=== PATIENT | male | born 1955 | race Asian ===

== ENCOUNTER 2020-12-09 09:26 | Day surgery (SDC) | payer OTHER, SELFPAY ==
[~2020-12-09] VITALS: Ht 165.1 cm; Wt 99.8 kg
[2020-12-09] MEDS ORDERED: fentaNYL citrate 0.05 MG/ML VIAL ONE (11:49)
[2020-12-09] MEDS ORDERED: LIDOCAINE 2% 100 MG/5 ML UJET TP ONE (11:49)
[2020-12-09] MEDS ORDERED: MIDAZOLAM 5 MG/5 ML VIAL ONE (11:49)
[2020-12-09] MEDS ORDERED: fentaNYL citrate 0.05 MG/ML VIAL IVP ONE (16:35)
[2020-12-09] MEDS ORDERED: SIMETHICONE 40 MG/0.6 ML PO ONE (16:35)
== END 2020-12-09 12:36 | disposition home or self-care (01) ==
LOC: MDS 09:26 → MMU 09:26 → MDS 12:36 → MMU 12-16 15:00
PROVIDERS: ATTEND Internal Medicine Gastroenterology
DX: Z12.11 Encounter for screening for malignant neoplasm of colon (principal); D12.5 Benign neoplasm of sigmoid colon; K57.30 Diverticulosis of large intestine without perforation or abscess without bleeding; I10 Essential (primary) hypertension; E78.5 Hyperlipidemia, unspecified; E11.9 Type 2 diabetes mellitus without complications; Z87.891 Personal history of nicotine dependence; Z79.899 Other long term (current) drug therapy
CPT/HCPCS: 45380; 82948; 87426; J3010; J7030; J2250